=== PATIENT | male | born 1975 | race Caucasian/White ===

== ENCOUNTER 2016-12-02 20:43 | Emergency (ER) | payer BC ==
[2016-12-02] MEDS ORDERED: Sodium Chloride 0.9% 1,000 ML IV ONE (20:53)
[2016-12-02] MEDS ORDERED: Sodium Chloride 0.9% 5 ML Syringe FLUSH PRN (20:53)
--- NOTE | 2016-12-02 21:20 | EDM.PDOC ---
ED HPI GENERAL MEDICAL PROBLEM - General Chief Complaint: General Stated Complaint: BLURRED VISION Time Seen by Provider: 12/02/16 21:14 Source of Information: Reports: Patient History Limitations: Reports: No Limitations - History of Present Illness INITIAL COMMENTS - FREE TEXT/NARRATIVE: PT STATES WHILE HE WAS PLAYING BASEBALL, HE DEVELOPED DOUBLE VISION. LASTED ABOUT 25 MINUTES AND GRADUALLY RESOLVED. DURING THIS TIME HE WAS ACTIVE PLAYING AND DID NOT EXPERIENCE ANY CP, SOB, OR SEAY. DENIES FEVER, N/V/D, ALCOHOL OR DRUG CONSUMPTION, OR SIMILAR SYMPTOMS IN PAST. ADMITS TO NOT DRINKING FLUIDS DURING GAME. Onset: Today Duration: Minutes: (25) Location: Reports: Other (BILAT EYES) Severity: Mild Improves with: Reports: None Worsens with: Reports: None Context: Reports: Activity Associated Symptoms: Denies: Chest Pain, Diaphoresis, Fever/Chills, Headaches, Nausea/Vomiting, Shortness of Breath, Weakness - Related Data Allergies Allergy/AdvReac Type Severity Reaction Status Date / Time No Known Drug Allergies Allergy Cannot Verified 12/02/16 20:50 Remember Home Meds: Home Meds . [No Known Home Meds] 12/02/16 [History] ED ROS GENERAL - Review of Systems Review Of Systems: ROS reveals no pertinent complaints other than HPI. Constitutional: Reports: No Symptoms HEENT: Reports: Vision Change. Denies: Eye Pain Respiratory: Reports: No Symptoms Cardiovascular: Reports: No Symptoms Endocrine: Reports: No Symptoms GI/Abdominal: Reports: No Symptoms : Reports: No Symptoms Musculoskeletal: Reports: No Symptoms Skin: Reports: No Symptoms Neurological: Reports: No Symptoms Psychiatric: Reports: No Symptoms Hematologic/Lymphatic: Reports: No Symptoms Immunologic: Reports: No Symptoms ED EXAM, GENERAL - Physical Exam Exam: See Below Exam Limited By: No Limitations General Appearance: Alert, WD/WN, No Apparent Distress Eye Exam: Bilateral Eye: Normal Inspection Ears: Normal External Exam, Normal Canal, Normal TMs Nose: Normal Inspection, Normal Mucosa, No Blood Throat/Mouth: Normal Inspection, Normal Oropharynx, No Airway Compromise Head: Atraumatic, Normocephalic Neck: Normal Inspection, Supple, Non-Tender, Full Range of Motion Respiratory/Chest: No Respiratory Distress, Lungs Clear, Normal Breath Sounds, No Accessory Muscle Use, Chest Non-Tender Cardiovascular: Regular Rate, Rhythm, No Murmur GI/Abdominal: Normal Bowel Sounds, Soft, Non-Tender Back Exam: Normal Inspection. No: CVA Tenderness (L), CVA Tenderness (R) Extremities: Normal Inspection, Normal Range of Motion, No Pedal Edema Neurological: Alert, Oriented, CN II-XII Intact, Normal Cognition, No Motor/ Sensory Deficits Psychiatric: Normal Affect, Normal Mood Skin Exam: Warm, Dry, Intact, Normal Color, No Rash Lymphatic: No Adenopathy EKG INTERPRETATION EKG Date: 12/02/16 Time: 21:20 Rhythm: NSR Rate (Beats/Min): 96 [place]: Normal P-Wave: Present QRS: Normal ST-T: Normal QT: Normal Comparison: NA - No Prior EKG Course - Vital Signs Last Recorded V/S: Last Vital Signs Temp 97 F 12/02/16 21:01 Pulse 120 H 12/02/16 21:01 Resp 20 12/02/16 21:01 BP 143/88 H 12/02/16 21:01 Pulse Ox 93 L 12/02/16 21:01 - Orders/Labs/Meds Orders: Active Orders 24 hr Category Date Time Status CMP [COMPREHENSIVE METABOLIC PN,CMP] [CHEM] Stat Lab 12/02/16 20:55 Received UA W/MICROSCOPIC [URIN] Stat Lab 12/02/16 21:03 Results Sodium Chloride 0.9% [Normal Saline] 1,000 ml Med 12/02/16 20:53 Active IV .BOLUS Sodium Chloride 0.9% [Syrex Flush] Med 12/02/16 20:53 Active 5 ml FLUSH Q8HR PRN Saline Lock Insert [OM.PC] Routine Oth 12/02/16 20:53 Ordered Medication Orders Sodium Chloride (Normal Saline) 1,000 mls @ 999 mls/hr IV .BOLUS ONE Stop: 12/02/16 21:53 Last Admin: 12/02/16 21:10 Dose: 999 mls/hr Sodium Chloride (Syrex Flush) 5 ml FLUSH Q8HR PRN PRN Reason: Keep Vein Open Labs: Laboratory Tests 12/02/16 12/02/16 Range/Units 20:55 21:03 WBC 5.3 (5.0-10.0) 10^3/uL RBC 5.44 (4.50-6.00) 10^6/uL Hgb 16.6 (13.0-17.0) g/dL Hct 47.3 (40.0-52.0) % MCV 87.1 (82.0-92.0) fL MCH 30.5 (27.0-31.0) pg MCHC 35.0 (32.0-36.0) g/dL RDW 12.3 (11.5-14.5) % Plt Count 217 (150-300) 10^3/uL MPV 7.6 (7.4-10.4) fL Neut % (Auto) 69.3 (50.0-70.0) % Lymph % (Auto) 19.9 L (20.0-40.0) % [place] % (Auto) 8.0 (2.0-8.0) % Eos % (Auto) 2.6 (1.0-3.0) % Baso % (Auto) 0.2 (0.0-1.0) % Neut # (Auto) 3.7 (2.5-7.0) 10^3/uL Lymph # (Auto) 1.1 (1.0-4.0) 10^3/uL [place] # (Auto) 0.4 (0.1-0.8) 10^3/uL Eos # (Auto) 0.1 (0.1-0.3) 10^3/uL Baso # (Auto) 0.0 (0.0-0.1) 10^3/uL Urine Color Yellow (YELLOW) Urine Appearance Clear (CLEAR) Urine pH 5.5 (5.0-9.0) Ur Specific [place] 1.020 (1.005-1.030) Urine Protein Negative (NEGATIVE) mg/dL Urine Glucose (UA) Negative (NEGATIVE) mg/dL Urine Ketones Negative (NEGATIVE) mg/dL Urine Occult Blood Small H (NEGATIVE) Urine Nitrite Negative (NEGATIVE) Urine Bilirubin Negative (NEGATIVE) Urine Urobilinogen 0.2 (0.2-1.0) E.U./dL Ur Leukocyte Esterase Negative (NEGATIVE) Meds: Medications Generic Name Dose Route Start Last Admin Trade Name Freq PRN Reason Stop Dose Admin Sodium Chloride 1,000 mls @ 999 mls/hr 12/02/16 20:53 12/02/16 21:10 Normal Saline IV 12/02/16 21:53 999 mls/hr .BOLUS ONE Administration Sodium Chloride 5 ml 12/02/16 20:53 Syrex Flush FLUSH Q8HR PRN Keep Vein Open - Re-Assessments/Exams Free Text/Narrative Re-Assessment/Exam: 12/02/16 21:35 PT AFEBRILE, NONTOXIC APPEARING, VSS. DISCUSSED F/U WITH DR FRAZIER IN NEXT 2 DAYS Departure - Departure Time of Disposition: 21:35 Disposition: Home, Self-Care 01 Condition: Good Clinical Impression: Dehydration, mild, Vision changes - Discharge Information Instructions: Dehydration, Adult, [id number], Blurred Vision Forms: ED Department Discharge Additional Instructions: FOLLOW UP WITH DR FRAZIER IN NEXT 2 DAYS. RETURN TO ER SOONER IF SYMPTOMS PERSIST - My Orders Last 24 Hours: My Active Orders 12/02/16 20:53 Sodium Chloride 0.9% [Normal Saline] 1,000 ml IV .BOLUS Sodium Chloride 0.9% [Syrex Flush] 5 ml FLUSH Q8HR PRN Saline Lock Insert [OM.PC] Routine 12/02/16 20:55 CMP [COMPREHENSIVE METABOLIC PN,CMP] [CHEM] Stat 12/02/16 21:03 UA W/MICROSCOPIC [URIN] Stat - Assessment/Plan Last 24 Hours: My Active Orders 12/02/16 20:53 Sodium Chloride 0.9% [Normal Saline] 1,000 ml IV .BOLUS Sodium Chloride 0.9% [Syrex Flush] 5 ml FLUSH Q8HR PRN Saline Lock Insert [OM.PC] Routine 12/02/16 20:55 CMP [COMPREHENSIVE METABOLIC PN,CMP] [CHEM] Stat 12/02/16 21:03 UA W/MICROSCOPIC [URIN] Stat Assessment:: DEHYDRATION Plan: F/U WITH PCP IN 2 DAYS
[2016-12-02 21:34] VITALS: BP 129/78
== END 2016-12-02 21:52 | disposition home or self-care (01) ==
LOC: KA.ED 20:43
DX: H57.8 Other specified disorders of eye and adnexa (principal); E86.0 Dehydration
CPT/HCPCS: 80053; 81001; 83036; 85025; 93005; 96360; 99284; J7030